=== PATIENT | female | born 1990 | race Caucasian/White ===

== ENCOUNTER 2016-12-01 00:44 | Emergency (ER) | payer SELFPAY ==
[~2016-12-01] VITALS: Ht 154.9 cm; Wt 62.0 kg
[2016-12-01] MEDS ORDERED: CYCLOBENZAPRINE 10MG TABLET PO ONE (03:15)
[2016-12-01] MEDS ORDERED: KETOROLAC 60MG/2ML VIAL IM ONE (03:15)
[2016-12-01 04:16] VITALS: BP 98/78
== END 2016-12-01 04:24 | disposition home or self-care (01) ==
LOC: ER 03:18
DX: S16.1XXA Strain of muscle, fascia and tendon at neck level, initial encounter (principal); V43.52XA Car driver injured in collision with other type car in traffic accident, initial encounter; Y93.89 Activity, other specified; Y92.410 Unspecified street and highway as the place of occurrence of the external cause; Y99.8 Other external cause status
CPT/HCPCS: 96372; 99283; J1885; Z7610